=== PATIENT | male | born 1935 | race Caucasian/White ===

== ENCOUNTER 2018-06-24 05:47 | Inpatient (IN) | payer MEDICARE, OTHER, SELFPAY ==
[2018-06-24] VITALS (8 sets, daily range): BP systolic 129–180; BP diastolic 67–88; PULSE 57–86; RESP 16–18; TEMP 36.5–36.8; O2SAT 98–100; BMI 22.6; BMI 22.1; BMI 22.2
[2018-06-24 06:19] LABS: Absolute Lymphocyte Count 1.85 X10^3/ul (0.83-4.51); Absolute Neutrophil Count 4.8 X10^3/uL (2.0-7.7); Basophil# 0.02 X10^3/uL; Basophil% 0.3 % (0-1); Eosinophil# 0.07 X10^3/uL; Hematocrit 44.9 % (40-54); Hemoglobin 14.6 g/dl (13.0-16.5); Lymphocyte # 1.85 X10^3/ul (4.0); Lymphocyte % 25.9 % (19-41); Mean Corp Hgb Conc 32.5 g/gl (32-36); Mean Corpuscular Hgb 29.9 pg (27.0-32.0); Mean Platelet Vol. 9.4 fl (6.2-12.0); Monocyte# 0.43 X10^3/uL; Neutrophil # 4.75 X10^3/uL (2.7-7.7); Neutrophil % 66.5 % (47-70); Platelet Count 177 K/mm3 (150-450); RBC Distribution Width CV 14.5 % (11.6-14.6); RBC Distribution Width SD 48.7 fl (35.1-43.9); Red Blood Count 4.88 M/mm3 (4.6-6.2); White Blood Count 7.1 K/mm3 (4.4-11.0)
[2018-06-24] MEDS: 0.9% Normal Saline 1,000 ML 125 ML IV (06:20)
[2018-06-24 06:23] LABS: POSITIVE COUNT NO; POSITIVE DIFFERENTIAL NO; POSITIVE MORPHOLOGY NO
[2018-06-24 06:32] LABS: Anion Gap 9 (5-15); BUN 21 mg/dL (7-18); BUN/Creat Ratio 16.2 RATIO (10-20); Calcium,Total 8.5 mg/dL (8.5-10.1); Chloride 105 mmol/L (98-107); EST Glomerular Filtration Rate 56 mL/min (>60); Est Glom Filt Rate - Afr Amer 68 mL/min (>60); Estimated Creatinine Clearance 49.94 ml/min; Glucose 103 mg/dL (74-106); Potassium 3.8 mmol/L (3.5-5.1); Sodium Level 141 mmol/L (136-145)
--- NOTE | 2018-06-24 06:44 | NURSING ---
HOSPITALIST PAGED DR BENITEZ PAGED
--- NOTE | 2018-06-24 06:45 | ED.VISSUMM ---
- ER Visit Summary Date of Service: 06/24/18 Chief Complaint: [Rectal bleeding] History of Present Illness: The patient is a 83 M [presents the emergency department complaint of rectal bleeding that started this morning. Patient states that he passed bright red blood per rectum ?3. Patient denies any abdominal pain or cramping. Denies feeling lightheaded or dizzy. Patient is never had an episode like this before. Patient does have a history of diverticulosis. Past surgical history includes an appendectomy. She is not on any blood thinners. Patient denies any trauma to his rectum. He denies any hemorrhoid history.] Physical Examination: [HEENT-PERRLA, EOMI. Cranial nerves II through XII grossly intact. TMs clear. Mucous membranes moist. No adenopathy. Cardiovascular-regular rate and rhythm without murmur or ectopy Lungs-clear to auscultation, chest wall stable without crepitus or subcu emphysema Abdomen-normoactive bowel sounds, soft, nontender, no rebound or rigidity, no peritoneal signs. Rectal exam-patient has bright red blood noted about the anus. No hemorrhoids noted. On rectal exam he has no masses in the rectal vault. Extremities-intact ?4, normal range of motion, normal pulses, atraumatic] Test Results: [CBC with differential obtained showed a white count of 7.1, heme globin 14.6, hematocrit 45, platelets 177. Chemistries were normal. Orthostatics were negative.] Emergency Department Course and Treatment: [IV line established patient was started on normal saline at 1 25 cc an hour.] Treatment Plan: [Admit for observation. I discussed case with Dr. Valerie Collins who would be happy to consult on the case. I will discuss case with hospitalist for admission.] Disposition: [Admit] Impression: [Rectal bleeding] This note was generated with [employer] dictation software. It may contain incorrect words, spelling, and punctuation that were not noted in review of the chart prior to signing ED Disposition - Plan for ED Patient: Chief Complaint: GI Bleed Referrals: Cecil Monk MD [Primary Care Provider] -
--- NOTE | 2018-06-24 06:51 | NURSING ---
HOSPITALIST FOR DR PANCHAL
--- NOTE | 2018-06-24 07:10 | NURSING ---
DR MARIA GUADALUPE PANCHAL
--- NOTE | 2018-06-24 07:17 | NURSING ---
DR LERMA IN ER
--- NOTE | 2018-06-24 07:17 | NURSING ---
MED SURG OBS GI BLEED MARIA GUADALUPE
--- NOTE | 2018-06-24 07:36 | PCM.HP.STD ---
Problem List (1) GI bleed Status: Acute History of Present Illness Date of Admission: 06/24/18 Chief Complaint: GI bleed. The patient is a 83 year old M and then earlier this morning had bright red blood per rectum. Patient had 2 other episodes about 15 minutes apart each but with most recent episode the stools more congealed. Patient presented to the emergency room and hemodynamically stable. The emergency room discussed with Dr. Collins of general surgery, who informed the ER that that she would see the patient on consultation. Patient denies any abdominal pain, hematemesis or any prior episode of hematochezia or melena. Denies any abdominal pain. Patient has never had this before. [] Past Medical History Medical History: Medical History (Last Updated 06/24/18 @ 07:38 by Linden Hill DO) Diverticulosis K57.90 Allergies No Known Allergies Allergy (Verified 06/24/18 05:50) Home Medications: Ambulatory Orders Medication Instructions Recorded Multivitamin [Daily Multiple 1 each PO DAILY 06/24/18 Vitamin] Psyllium Husk [Metamucil] gm PO DAILY 06/24/18 Surgical History: no surgical history Psychiatric History: No pertinent psych hx Lives: Spouse/ Significant Other Smoking Status: Never smoker Tobacco Use: Non-smoker Alcohol: Occasional Drugs: None - *Family History Paternal History Items: - - No colon cancer Review of Systems Constitutional: Denies: Anorexia, Chills, Fever, Night Sweats Eyes: Denies: Blurred vision, Double vision HEENT: Denies: Head Aches, Sinus Congestion, Sinus Drainage Cardiovascular: Denies: Chest Pain, Palpitations Respiratory: Denies: Cough, Shortness of breath at rest, Sputum production Gastrointestinal: Reports: Hematochezia. Denies: Abdominal Pain, Hematemesis, Nausea, Vomiting Genitourinary: Denies: Dysuria Musculoskeletal: Denies: Joint Pain, Joint Tenderness Skin: Reports: - - Does get some bruising. Denies: Rash, Wounds Neurological: Denies: Numbness, Tingling, Focal weakness Psychiatric: Denies: Anxiety, Depression Hematologic/ Lymphatic: Denies: Easy Bruising, Easy Bleeding, Hx of blood clot Comment: All review of systems are negative except as mentioned in the history of present illness and the other review of systems. VTE Information - Inpt Only VTE Present on Admission: No VTE Pharm Prophylaxis ordered?: Yes Patient Problems: Active and Suspected Problems (Last Updated 06/24/18 @ 07:38 by Linden Hill DO) GI bleed (Acute) - Physical Exam General: Alert, No apparent distress HEENT: Atraumatic, Normocephalic, - - No icterus Oral: Moist Mucosa, No Gingival or Mucosal Lesions/ Ulcerations Neck: No Nodes, Thyroid Normal Size and Texture Lungs: Clear to auscultation, Normal air movement, No rhonchi, No wheeze Cardiovascular: Regular rate, Regular Rhythm, Normal S1, Normal S2, No murmurs Abdomen: Bowel Sounds Present, Soft, Non Tender, Non-Distended, No Hepato-splenomegaly Extremities: No edema, No Calf Tenderness Skin: No rashes, No breakdown Musculoskeletal: No Tenderness to Palpation of Joints or Extremities, No Muscle Wasting Neurological: Deep Tendon Reflexes 2+/4 and Symmetrical, - - No clonus Psych/Mental Status: Normal Affect, Appropriate Vital Signs Temp Pulse Resp BP Pulse Ox 36.5 C L 68 18 147/73 H 99 06/24/18 05:48 06/24/18 06:16 06/24/18 05:48 06/24/18 06:16 06/24/18 05:48 Assessment/Plan All Active Problems (Last Updated 06/24/18 @ 07:38 by Linden Hill DO) GI bleed (Acute) 1. Acute GI bleed Patient is hemodynamically stable I suspect that this is diverticular bleed Monitor his H&H General surgery on consultation and will determine if any procedures are necessary, such as colonoscopy. Discussed with patient I feel that this issue of bleeding will be self-limiting, however, if he does get more brisk that he may not require bleeding scan or coil embolization, the latter which would need to be done at a tertiary facility. 2. DVT prophylaxis: SCDs. Chemical prophylaxis is contraindicated in light of the Acute bleed. Code Visit Inpatient E&M: 83561 Init Hosp L3
--- NOTE | 2018-06-24 11:58 | NURSING ---
pt transferred to PCU per doctor order. pt left via wheelchair
[2018-06-24 12:20] LABS: Absolute Lymphocyte Count 1.66 X10^3/ul (0.83-4.51); Absolute Neutrophil Count 3.9 X10^3/uL (2.0-7.7); Basophil# 0.02 X10^3/uL; Basophil% 0.3 % (0-1); Eosinophil# 0.08 X10^3/uL; Eosinophils% 1.3 % (0-5); Hematocrit 43.9 % (40-54); Hemoglobin 14.9 g/dl (13.0-16.5); Lymphocyte # 1.66 X10^3/ul (4.0); Lymphocyte % 26.7 % (19-41); Mean Corp Hgb Conc 33.9 g/gl (32-36); Mean Corpuscular Hgb 30.8 pg (27.0-32.0); Mean Corpuscular Volume 90.9 fL (80-94); Mean Platelet Vol. 9.3 fl (6.2-12.0); Monocyte# 0.51 X10^3/uL; Monocyte% 8.2 % (0-10); Neutrophil # 3.93 X10^3/uL (2.7-7.7); Neutrophil % 63.3 % (47-70); POSITIVE COUNT NO; POSITIVE DIFFERENTIAL NO; POSITIVE MORPHOLOGY NO; Platelet Count 172 K/mm3 (150-450); RBC Distribution Width CV 14.2 % (11.6-14.6); RBC Distribution Width SD 47.2 fl (35.1-43.9); Red Blood Count 4.83 M/mm3 (4.6-6.2); White Blood Count 6.2 K/mm3 (4.4-11.0)
--- NOTE | 2018-06-24 16:06 | EKG12_ITS ---
Test Reason : ADMISSION EKG Blood Pressure : / mmHG Vent. Rate : 055 BPM Atrial Rate : 055 BPM P-R Int : 160 ms QRS Dur : 096 ms QT Int : 432 ms P-R-T Axes : 031 -22 015 degrees QTc Int : 413 ms Sinus bradycardia Incomplete right bundle branch block Minimal voltage criteria for LVH, may be normal variant Inferior infarct , age undetermined Abnormal ECG Confirmed by AMADOR LOVE, TIFFANY ([id number]), website/blog editor MILO FOSTER ([id number]) on 06/29/2018 2:02:26 PM Referred By: MARIA GUADALUPE Confirmed By:TIFFANY ENGLISH MD
--- NOTE | 2018-06-24 17:04 | PCM.CONS.B ---
- Consult Date of Consult: 06/24/18 - Reason for Consult Chief Complaint: rectal bleeding History of Present Illness: 83 y/o pleasant WM presents with rectal bleeding, copious amount, this morning. No antecedent symptoms. Denies abdominal pain. Denies anorexia. Had colonoscopy in the 90s, with findings of polyps, repeat colonoscopy 3-5 years later was OK. No colonoscopy since, but had sigmoidoscopy several years ago. Has increased abdominal gas for the past year and a half. More frequent bowel movements - about 3 per day, loose. No family history of colon cancer known. Past Medical History: Denies major medical illnesses such as hypertension or diabetes Past Surgical History: Denies previous surgery Medications: MVI psyllium Allergies: Has no known drug allergies Social history: TOB use denies , lives with Review of Systems: General - denies fevers, denies weight loss, denies anorexia Cardiovascular denies chest pain, denies history of heart attack, has borderline hypertension Pulmonary denies shortness of breath, denies coughing up blood Gastrointestinal as per HPI, no recent colonoscopy - he thinks that he was told he had diverticulosis at one time Neurological denies numbness/weakness of extremities, denies seizures, denies history of stroke Genitourinary denies burning with urination, denies blood in urine Hematological denies spontaneous/prolonged bleeding Skin denies open non healing wounds Musculoskeletal denies chronic back/joint pain Endocrine denies diabetes Psychological denies hallucinations Physical examination: Vital signs Temp 97.7 F HR 72 RR 16 BP 129/71 General WD/WN WM in no apparent distress, alert and oriented, not septic appearing HEENT Normocephalic. EOM intact with sclera clear and no icterus noted. Wearing glasses. Neck is supple with no jugular venous distention noted. Trachea is midline. Lungs no labored breathing noted such as retractions. No cough heard. Heart regular Abdomen soft and benign. Normal bowel sounds Extremities no calf tenderness or swelling noted. No pitting edema noted. No obvious deformity noted. Genitourinary/Rectal deferred Skin no rashes noted. Normal skin integrity. Neurological cranial nerves II-XII intact. Normal motor strength in arms and legs. No localized numbness detected. Psychological normal affect, patient is calm and appropriate Impression: lower GIB Informed consent: I have discussed the above with the patient. I have told them that I suspect that this was a diverticular bleed and have explained this to them. Will plan colonoscopy as outpatient. I have explained the procedure to them, including the risks of the procedure, which are the following including but not limited to: infection, bleeding, injury to intraabdominal organs such as liver/spleen, perforation of the GI tract, inability to complete the procedure, etc. - he understands. Will probable discharge patient and I will follow up patient in my clinic. I have answered all questions to the patients satisfaction and the patient has no further questions.
--- NOTE | 2018-06-24 17:26 | PCM.DC ---
- Discharge Diagnoses Current Active Problems: Current Active and Chronic Problems (Last Updated 06/24/18 @ 07:38 by Linden Hill DO) GI bleed (Acute) You will use the following diet at home:: No restrictions Your food should be the consistency of: Regular Your liquids should be the consistency of: Regular/Thin Discharge Activity: Return to Normal Activity Allergies/Adverse Reactions: Allergies No Known Allergies Allergy (Verified 06/24/18 05:50) Medications to take at Discharge Multivitamin [Daily Multiple Vitamin] 1 each PO DAILY 06/24/18 Psyllium Husk [Metamucil] 1 cap PO DAILY 06/24/18 Primary Care Physician: Cecil Monk MD [Primary Care Provider] - Please follow up with your Primary Care Physician in: 1-2 weeks Test Results: Test results from this visit will be discussed in further detail at your follow-up appointment, if applicable. Please Follow Up With: Valerie Collins MD When: 1-2 weeks Proposed Discharge Date: 06/24/18
--- NOTE | 2018-06-25 07:14 | PCM.DC.SUM ---
Discharge Date and Diagnosis Date of Admission: 06/24/18 Date of Discharge: 06/24/18 Hospital Course and Treatment Valerie Collins MD. Operations: None Procedures: None Summary of Care Provided: The patient is a 83 year old M presents with lower GI bleed. GI bleed resolved. Seen by Gen Surgery. Plan was outpt colonoscopy. Patient discharged home.[] Discharge Diet: No Restrictions Discharge Activity: Return to Normal Activity Call your doctor if your incision/area has: Continuous Slow Oozing Call your doctor if you observe: Fever of 101 or Higher, - - further GI bleed Home Medications: Medications to take at Discharge Multivitamin [Daily Multiple Vitamin] 1 each PO DAILY 06/24/18 Psyllium Husk [Metamucil] 1 cap PO DAILY 06/24/18 Primary Care Physician: Cecil Monk MD [Primary Care Provider] - Please follow up with your Primary Care Physician in: 1-2 weeks Please Follow Up With: Valerie Collins MD When: 1-2 weeks Disposition: Home Minutes spent on discharge:: 35 Patient Condition:: Good Medical Necessity - Tobacco Use Smoking Status: Never smoker Tobacco Use: Non-smoker Meaningful Use Info Meaningful Use Diagnoses (Choose all that apply): None applicable Code Visit OBSV E&M: 96165 Observ/hosp same date L3
== END 2018-06-24 19:15 | disposition home or self-care (01) | DRG 379 ==
LOC: ED 06:55 → MS3 08:10 → PCU 14:24 → MS3 16:20 → PCU 16:21
PROVIDERS: Emergency Provider Emergency Medicine; Family Provider Family Medicine; PCP Family Medicine
DX: K92.2 Gastrointestinal hemorrhage, unspecified (principal)
CPT/HCPCS: 80048; 85025; 86850; 86900; 93005; 99285; J7030; A4216

== ENCOUNTER 2020-12-05 11:00 | Outpatient (RCR) | payer MEDICARE, BC, SELFPAY ==
[2018-06-24 08:33] VITALS: BMI 22.1
== END 2020-12-05 23:59 ==
LOC: IMMUN 11:00
PROVIDERS: PCP Family Medicine; Visit Provider Family Medicine
DX: Z23 Encounter for immunization (principal)
CPT/HCPCS: 0011A; 0012A; 91301